=== PATIENT | female | born 1990 | race Caucasian/White ===

== ENCOUNTER 2016-06-21 20:17 | Emergency (ER) | payer MEDICAID ==
[~2016-06-21] VITALS: Ht 165.1 cm; Wt 56.7 kg
[~2016-06-21 20:17] MED LIST: BIRTH CONTROL
[2016-06-21 20:37] VITALS: BP 111/77
== END 2016-06-21 21:08 | disposition home or self-care (01) ==
LOC: ER 20:18
DX: M54.2 Cervicalgia (principal); V49.40XA Driver injured in collision with unspecified motor vehicles in traffic accident, initial encounter; Y93.89 Activity, other specified; Y92.413 State road as the place of occurrence of the external cause; Y99.8 Other external cause status; F32.9 Major depressive disorder, single episode, unspecified
CPT/HCPCS: 99283; A4606; Z7610